=== PATIENT | female | born 2000 | race Caucasian/White ===

== ENCOUNTER 2022-07-18 16:22 | Outpatient (CLI) | payer OTHER, SELFPAY | END 2022-07-18 16:23 | disposition home or self-care (01) | LOC: LKVREF 07-20 17:26 | PROVIDERS: Visit Provider Student in an Organized Health Care Education/Training Program | DX: R30.0 Dysuria (principal); N39.0 Urinary tract infection, site not specified | CPT/HCPCS: 87086; 87186 ==